=== PATIENT | male | born 1950 | race Two or more races ===

== ENCOUNTER 2017-10-07 13:56 | Emergency (ER) | payer MEDICARE ==
[~2017-10-07] VITALS: Ht 165.1 cm; Wt 72.6 kg
[2017-10-07 14:53] VITALS: BP 131/80
== END 2017-10-07 16:41 | disposition home or self-care (01) ==
LOC: ER 14:02 → EDSEX 14:02 → ER 16:41
DX: N39.0 Urinary tract infection, site not specified (principal); B37.42 Candidal balanitis
CPT/HCPCS: 81002

== ENCOUNTER 2017-10-10 16:03 | Emergency (ER) | payer MEDICARE ==
[~2017-10-10] VITALS: Ht 162.6 cm; Wt 82.1 kg
[2017-10-10 16:58] LABS: Basophils # (auto) 0.1 uL; Eosinophils # (auto) 0.1 uL; Hematocrit 45.1 % (41.0-53.0); Hemoglobin 15.8 g/dL (13.5-17.5); Lymphocytes # (auto) 1.2 uL; Lymphocytes % (auto) 20.7 % (10.0-50.0); Mean Corpuscular Hemoglobin 32.3 pg (28.0-32.0); Mean Corpuscular Hgb Conc. 35.1 g/dL (32.0-36.0); Mean Corpuscular Volume 91.9 fL (80.0-100.0); Monocytes # (auto) 0.4 uL; Monocytes % (auto) 7.1 % (0.0-12.0); Neutrophils # (auto) 4.1 uL; Neutrophils % (auto) 70.2 % (37.0-80.0); Nucleated Red Blood Cells % 0.3 %; Platelet Count (auto) 202 10^3/uL (140-450); Red Blood Cells 4.91 10^6/uL (4.5-5.90); White Blood Cell 5.9 10^3/uL (4.4-10.8)
[2017-10-10 17:03] LABS: Urine Bacteria NONE SEEN /hpf (None Seen); Urine Blood Negative /uL (Negative); Urine Mucus FEW (None Seen); Urine Specific Gravity 1.018 (1.001-1.035); Urine WBC <1 /hpf (0 - 3)
[2017-10-10 17:45] LABS: Bilirubin, Total 0.9 mg/dL (0.2-1.0); Calcium 8.3 mg/dL (8.5-10.1); Potassium 3.9 mmol/L (3.5-5.1); Total Protein 7.2 g/dL (6.4-8.2)
[2017-10-10 19:12] VITALS: BP 148/93
== END 2017-10-10 19:26 | disposition home or self-care (01) ==
LOC: ER 16:03
DX: N39.0 Urinary tract infection, site not specified (principal); K42.9 Umbilical hernia without obstruction or gangrene; R00.0 Tachycardia, unspecified
CPT/HCPCS: 36415; 80053; 81001; 85025; 93005

== ENCOUNTER 2017-10-19 11:27 | Emergency (ER) | payer MEDICARE ==
[2017-10-19 12:30] VITALS: BP 124/72
[2017-10-19 12:56] LABS: Urine Bacteria NONE SEEN /hpf (None Seen); Urine Blood Negative /uL (Negative); Urine Mucus FEW (None Seen); Urine WBC <1 /hpf (0 - 3)
== END 2017-10-19 12:57 | disposition home or self-care (01) ==
LOC: ER 11:27
DX: R39.198 Other difficulties with micturition (principal); R30.0 Dysuria
CPT/HCPCS: 81001; 81002

== ENCOUNTER 2017-10-21 09:52 | Emergency (ER) | payer MEDICARE ==
[~2017-10-21] VITALS: Ht 175.3 cm; Wt 68.0 kg
[2017-10-21 10:29] VITALS: BP 126/82
== END 2017-10-21 10:58 | disposition home or self-care (01) ==
LOC: ER 09:52
DX: N48.89 Other specified disorders of penis (principal)